=== PATIENT | female | born 1955 | race Two or more races ===

== ENCOUNTER 2020-01-02 09:54 | Outpatient (CLI) | payer OTHER | END 2020-01-02 10:18 | disposition home or self-care (01) | LOC: MAMO-SONO 09:54 | PROVIDERS: ATTEND Specialist | DX: D24.1 Benign neoplasm of right breast (principal); Q61.02 Congenital multiple renal cysts; N20.0 Calculus of kidney; I25.10 Atherosclerotic heart disease of native coronary artery without angina pectoris; N64.59 Other signs and symptoms in breast; Z12.31 Encounter for screening mammogram for malignant neoplasm of breast ==

== ENCOUNTER 2020-01-02 11:17 | Outpatient (CLI) | payer OTHER | END 2020-01-02 11:21 | disposition home or self-care (01) | LOC: NUCLEAR 11:17 | PROVIDERS: ATTEND Specialist | DX: M81.0 Age-related osteoporosis without current pathological fracture (principal) ==

== ENCOUNTER 2020-04-29 15:33 | Outpatient (CLI) | payer OTHER | END 2020-04-29 15:40 | disposition home or self-care (01) | LOC: RAD 15:33 | PROVIDERS: ATTEND Urology | DX: N20.0 Calculus of kidney (principal) ==

== ENCOUNTER 2020-08-22 09:26 | Outpatient (CLI) | payer OTHER | END 2020-08-22 09:27 | disposition home or self-care (01) | LOC: TOM 09:26 | PROVIDERS: ATTEND Specialist | DX: N20.0 Calculus of kidney (principal) ==

== ENCOUNTER 2020-11-03 12:37 | Outpatient (CLI) | payer OTHER | END 2020-11-03 12:43 | disposition home or self-care (01) | LOC: MAMO-SONO 12:37 | PROVIDERS: ATTEND Student in an Organized Health Care Education/Training Program | DX: R92.1 Mammographic calcification found on diagnostic imaging of breast (principal); N60.11 Diffuse cystic mastopathy of right breast; N60.12 Diffuse cystic mastopathy of left breast ==

== ENCOUNTER 2021-02-23 09:43 | Outpatient (CLI) | payer OTHER | END 2021-02-23 09:47 | disposition home or self-care (01) | LOC: RAD 09:43 | DX: Z01.812 Encounter for preprocedural laboratory examination (principal) ==

== ENCOUNTER 2021-02-23 10:17 | Outpatient (CLI) | payer OTHER | END 2021-02-23 10:28 | disposition home or self-care (01) | LOC: EKG 10:17 | DX: Z01.812 Encounter for preprocedural laboratory examination (principal); Z01.810 Encounter for preprocedural cardiovascular examination ==

== ENCOUNTER 2021-10-08 07:23 | Outpatient (CLI) | payer OTHER | END 2021-10-08 07:24 | disposition home or self-care (01) | LOC: NUCLEAR 07:23 | PROVIDERS: ATTEND Internal Medicine Cardiovascular Disease | DX: D35.1 Benign neoplasm of parathyroid gland (principal) | CPT/HCPCS: 78072; A9500 ==

== ENCOUNTER 2021-10-08 10:11 | Outpatient (CLI) | payer OTHER | END 2021-10-08 10:16 | disposition home or self-care (01) | LOC: RAD 10:11 | PROVIDERS: ATTEND Specialist | DX: N20.0 Calculus of kidney (principal) ==

== ENCOUNTER → 2022-06-09 | Outpatient (CLI) | payer OTHER | END | disposition home or self-care (01) | LOC: RAD 10:44 | PROVIDERS: ATTEND Specialist | DX: J45.991 Cough variant asthma (principal) ==

== ENCOUNTER 2023-01-20 10:13 | Outpatient (CLI) | payer OTHER | END 2023-01-20 10:18 | disposition home or self-care (01) | LOC: SONOGRAMA 10:13 | PROVIDERS: ATTEND Specialist | DX: N20.0 Calculus of kidney (principal) ==

== ENCOUNTER 2024-03-20 10:26 | Outpatient (CLI) | payer OTHER | END 2024-03-20 10:36 | disposition home or self-care (01) | LOC: RAD 10:26 | PROVIDERS: ATTEND Specialist | DX: N20.1 Calculus of ureter (principal) ==

== ENCOUNTER 2024-06-14 08:53 | Outpatient (CLI) | payer OTHER | END 2024-06-14 09:03 | disposition home or self-care (01) | LOC: MAMO-SONO 08:53 | PROVIDERS: ATTEND Specialist | DX: N60.39 Fibrosclerosis of unspecified breast (principal); Z12.39 Encounter for other screening for malignant neoplasm of breast; M81.0 Age-related osteoporosis without current pathological fracture; Z13.820 Encounter for screening for osteoporosis; Z12.31 Encounter for screening mammogram for malignant neoplasm of breast ==

== ENCOUNTER → 2024-06-28 | Outpatient (CLI) | payer OTHER | END | disposition home or self-care (01) | LOC: NUCLEAR 13:29 | PROVIDERS: ATTEND Specialist | DX: M81.0 Age-related osteoporosis without current pathological fracture (principal) ==

== ENCOUNTER 2024-07-27 13:26 | Outpatient (CLI) | payer OTHER | END 2024-07-27 13:31 | disposition home or self-care (01) | LOC: RAD 13:26 | PROVIDERS: ATTEND Specialist | DX: M99.01 Segmental and somatic dysfunction of cervical region (principal); M99.02 Segmental and somatic dysfunction of thoracic region; M99.03 Segmental and somatic dysfunction of lumbar region; M99.04 Segmental and somatic dysfunction of sacral region ==